=== PATIENT | male | born 1960 | race Caucasian/White ===

== ENCOUNTER 2022-03-28 13:04 | Emergency (ER) | payer BC | END 2022-03-28 15:46 | disposition home or self-care (01) | LOC: CSHERS 13:04 | DX: S00.83XA Contusion of other part of head, initial encounter (principal); S09.90XA Unspecified injury of head, initial encounter; I10 Essential (primary) hypertension; W22.8XXA Striking against or struck by other objects, initial encounter | CPT/HCPCS: 70450 ==